=== PATIENT | female | born 1960 | race Caucasian/White ===

== ENCOUNTER 2020-12-17 21:35 | Emergency (ER) | payer SELFPAY ==
[~2020-12-17] VITALS: Ht 157.5 cm; Wt 77.1 kg
[2020-12-17 21:46] VITALS: BP 159/84
[2020-12-17] MEDS ORDERED: BACITRACIN OP OINT 500 UNITS/GM 3.5 GM TUBE OP SCH (23:50)
[2020-12-17] MEDS ORDERED: BACITRACIN OINT 500 UNITS/GM PKT TP ONE (23:55)
[2020-12-18] MEDS ORDERED: BACITRACIN OINT 500 UNITS/GM PKT TP ONE
--- NOTE | 2020-12-18 00:20 | NUR ---
MEDICATED AND CLEANED WOUND APPLIED BACITRACIN AND DRESSED PER ERMD ORDER.
[2020-12-18] MEDS ORDERED: NAPR-54 PO (00:50)
--- NOTE | 2020-12-18 00:54 | NUR ---
d/c with VSS. d/c education given. opportunity to ask questions given and answered. rx of naprosyn given.
== END 2020-12-18 00:54 | disposition home or self-care (01) ==
LOC: MED 21:35
DX: T22.112A Burn of first degree of left forearm, initial encounter (principal); S20.219A Contusion of unspecified front wall of thorax, initial encounter; S50.12XA Contusion of left forearm, initial encounter; I10 Essential (primary) hypertension; Z79.1 Long term (current) use of non-steroidal anti-inflammatories (NSAID); Z88.5 Allergy status to narcotic agent; Z88.0 Allergy status to penicillin; V89.2XXA Person injured in unspecified motor-vehicle accident, traffic, initial encounter; Y93.89 Activity, other specified; Y92.410 Unspecified street and highway as the place of occurrence of the external cause; Y99.8 Other external cause status
CPT/HCPCS: 16000; 71045; 73090; 90471; 90715; 99284